=== PATIENT | female | born 1990 | race Hispanic/Latino ===

== ENCOUNTER 2016-09-14 10:10 | Emergency (ER) | payer MEDICARE, MEDICAID ==
[2016-09-14 10:27] VITALS: RESP 16; TEMP 97.8; O2SAT 100; BMI 37.4
--- NOTE | 2016-09-14 10:33 | ED PDOC ---
Arrival/HPI - General Historian: Patient - General Chief Complaint: Cough, Cold, Congestion Time Seen by Provider: 09/14/16 10:11 - History of Present Illness Narrative History of Present Illness (Text): 09/14/16 10:29 26 y/o female, no pmh, nkda, c/o coughing/cold x 2 days with no recent traveling for the past 2 months. Pt. has nasal congestion, productive coughing for the past 2 days, woke up this morning and take the coughing medication on empty stomach, has epigastric pain now, no dizziness, no night sweat, no fever or chills, no numbness or tingling, no palpitation, no other medical or psychological complaints. (Peyman Castellano) Past Medical History - Provider Review Nursing Documentation Reviewed: Yes - Cardiac Hx Cardiac Disorders: No - Pulmonary Hx Respiratory Disorders: No - Neurological Hx Neurological Disorder: No - HEENT Hx HEENT Disorder: No - Renal Hx Renal Disorder: No - Endocrine/Metabolic Hx Endocrine Disorders: No - Hematological/Oncological Hx Blood Disorders: Yes Other/Comment: DVT left leg - Integumentary Hx Dermatological Disorder: No - Musculoskeletal/Rheumatological Hx Musculoskeletal Disorders: Yes Hx Back Pain: Yes - Gastrointestinal Hx Gastrointestinal Disorders: No - Genitourinary/Gynecological Hx Genitourinary Disorders: No - Psychiatric Hx Psychophysiologic Disorder: No Hx Substance Use: No - Surgical History Other/Comment: gastric sleeve Family/Social History - Physician Review Nursing Documentation Reviewed: Yes Family/Social History: Unknown Family HX Smoking Status: Never Smoked Hx Alcohol Use: No Hx Substance Use: No Allergies/Home Meds Allergies/Adverse Reactions: Allergies No Known Allergies Allergy (Verified 09/14/16 10:26) Home Medications: Home Meds Medication Instructions Recorded Confirmed Cyclobenzaprine [Flexeril] 10 mg PO PRN PRN 09/14/16 09/14/16 Review of Systems - Review of Systems Constitutional: absent: Fatigue, Fevers Eyes: absent: Vision Changes ENT: Rhinorrhea, Sinus Congestion. absent: Hearing Changes Respiratory: Cough, Sputum. absent: SOB Cardiovascular: absent: Chest Pain Gastrointestinal: Abdominal Pain. absent: Nausea, Vomiting Skin: absent: Rash, Pruritis Neurological: absent: Headache, Dizziness, Focal Weakness, Gait Changes, Speech Changes, Facial Droop, Disequilibrium, Seizure Physical Exam Vital Signs Reviewed: Yes Temperature: Afebrile Blood Pressure: Normal Pulse: Regular Respiratory Rate: Normal Appearance: Positive for: Well-Appearing, Non-Toxic, Comfortable Pain Distress: Mild Mental Status: Positive for: Alert and Oriented X 3 - Systems Exam Head: Present: Atraumatic, Normocephalic, Other (+ttp on the lt. maxillary sinus region) Pupils: Present: PERRL Extroacular Muscles: Present: EOMI Conjunctiva: Present: Normal Ears: Present: NORMAL TM, Normal Canal. No: Erythema Mouth: Present: Moist Mucous Membranes Pharnyx: No: ERYTHEMA, EXUDATE, TONSILS ENLARGED, Uvular Deviation, Soft Palate/ Uvular Edema Nose (External): Present: Atraumatic. No: Abrasion, Contusion, Laceration Nose (Internal): Present: Normal Inspection, No Active Bleeding, Rhinorrhea. No : Purulent Mucous, Septal Deviation, Septal Hematoma, Epistaxis Neck: Present: Normal Range of Motion, Trachea Midline. No: Meningeal Signs, MIDLINE TENDERNESS, Paraspinal Tenderness, Lymphadenopathy Respiratory/Chest: Present: Clear to Auscultation, Good Air Exchange. No: Respiratory Distress, Accessory Muscle Use, Wheezes, Decreased Breath Sounds, Rales, Retracting, Rhonchi, Tachypneic Cardiovascular: Present: Regular Rate and Rhythm, Normal S1, S2. No: Murmurs Abdomen: Present: Tenderness (mild epigastric tenderness), Normal Bowel Sounds. No: Distention, Peritoneal Signs, Rebound, Guarding Upper Extremity: Present: Normal Inspection. No: Cyanosis, Edema Lower Extremity: Present: Normal Inspection. No: Edema Neurological: Present: GCS=15, Speech Normal, Motor Func Grossly Intact, Gait Normal, Memory Normal Skin: Present: Warm, Dry, Normal Color. No: Rashes Psychiatric: Present: Alert, Oriented x 3, Normal Insight, Normal Concentration Vital Signs Temp Pulse Resp BP Pulse Ox 09/14/16 11:25 80 16 121/82 100 09/14/16 10:24 97.8 F 79 16 120/80 100 Medical Decision Making - RAD Interpretation Operator [employer]: Radiologist ED Course and Treatment: I was available for consultation during PA evaluation. The chart was reviewed by me, and I agree with disposition. The documented history was done by the physician wastewater technician. The documented physical exam was done by the physician wastewater technician. The documented procedures were done by the physician wastewater technician. ( Lyle Alcocer) 09/14/16 10:37 -pepcid -chest xray -rapid flu -observe and reassess 09/14/16 11:15 -Abdominal pain resolved with the pepcid, physical examination is non-tender with no guarding. -Urine hcg negative -Rapid flu negative -Chest x-ray show no active disease -Discharge home with cefdinir, claritin d24, flonase, promethazine dm, take tylenol or motrin as needed, stay hydrated, follow up with your own pmd and ENT within 2 days, return to the ER for any new or worsening signs or symptoms. (Peyman Castellano) - Lab Interpretations Lab Results: Lab Results 09/14/16 10:41: Influenza Typ A,B (EIA) Negative for flu a/b - RAD Interpretation Radiology Orders: 09/14/16 10:33 CHEST TWO VIEWS (PA/LAT) [RAD] Stat no active disease (Peyman Castellano) - Medication Orders Current Medication Orders: Discontinued Medications Famotidine (Pepcid) 20 mg PO STAT STA Stop: 09/14/16 10:34 Last Admin: 09/14/16 10:51 Dose: 20 MG - PA / CYCLE MANAGER / Resident Statement MD/DO has reviewed & agrees with the documentation as recorded. Disposition/Present on Arrival - Present on Arrival Any Indicators Present on Arrival: No History of DVT/PE: No History of Uncontrolled Diabetes: No Urinary Catheter: No History of Decub. Ulcer: No History Surgical Site Infection Following: None - Disposition Have Diagnosis and Disposition been Completed?: Yes Disposition Time: 10:39 Patient Plan: Discharge - Disposition Diagnosis: Sinusitis Disposition: HOME/ ROUTINE Condition: GOOD Additional Instructions: Discharge home with cefdinir, claritin d24, flonase, promethazine dm, take tylenol or motrin as needed, stay hydrated, follow up with your own pmd and ENT within 2 days, return to the ER for any new or worsening signs or symptoms. Prescriptions: Loratadine/Pseudoephedrine [Claritin-D 24 Hour Tablet] 1 each PO DAILY #7 tab.er.24h Fluticasone Propionate [Flonase Allergy Relief] 9.9 ml NS DAILY #1 spray.susp Cefdinir [Omnicef] 300 mg PO BID #20 cap Promethazine DM [Phenergan DM Syrup] 5 ml PO QID PRN #150 ml PRN Reason: Other Referrals: [facility] [place] - Follow up with primary Yamil Alvarado DO [Staff Provider] - Follow up with primary Forms: WORK NOTE
[2016-09-14 11:26] VITALS: BP 121/82; PULSE 80
--- NOTE | 2016-09-14 15:52 | RAD ---
HISTORY: cough COMPARISON: No prior. TECHNIQUE: Chest PA and lateral FINDINGS: LUNGS: No active pulmonary disease. PLEURA: No significant pleural effusion identified. No pneumothorax apparent. CARDIOVASCULAR: Normal. OSSEOUS STRUCTURES: No significant abnormalities. VISUALIZED UPPER ABDOMEN: Normal. OTHER FINDINGS: None. IMPRESSION: No active disease.
== END 2016-09-14 11:25 | disposition home or self-care (01) ==
LOC: ED 10:10
DX: J32.9 Chronic sinusitis, unspecified (principal)

== ENCOUNTER 2017-02-11 09:30 | Emergency (ER) | payer MEDICAID, MEDICARE ==
[2017-02-11 09:30] VITALS: BMI 37.4
[2017-02-11 10:05] VITALS: BP 109/74; PULSE 103; RESP 17; TEMP 98.2; O2SAT 100
--- NOTE | 2017-02-11 10:31 | ED PDOC ---
Arrival/HPI - General Historian: Patient - History of Present Illness Time/Duration: Other (chronic) Symptom Onset: Gradual Symptom Course: Worsening (last 30 days) Context: Home - General Chief Complaint: Back Pain Time Seen by Provider: 02/11/17 10:05 - History of Present Illness Narrative History of Present Illness (Text): 02/11/17 10:25 This 26 yo female with pmh chronic back pain x 5 years, presents to this ED c/o worsening left lower back pain, than radiates to posterior thigh x 1month. Patient stated pain has worsen yesterday, and she saw her orthopedist doctor multiple times within last 3-4 weeks. She had lumbar spine x-rays which shows no Fx. and recently had an MRI of lower back which shows bulging disc. Patient denies sob, cp, abdominal pain, urinary symptoms, GI/ incontinence, saddle anesthesias, urinary retention, or abnormal gait. (Jossue Vieira) Past Medical History - Provider Review Nursing Documentation Reviewed: Yes - Travel History If Yes, travel location?: [place] - Cardiac Hx Cardiac Disorders: Yes - Pulmonary Hx Respiratory Disorders: No - Neurological Hx Neurological Disorder: No - HEENT Hx HEENT Disorder: No - Renal Hx Renal Disorder: No - Endocrine/Metabolic Hx Endocrine Disorders: No - Hematological/Oncological Hx Blood Disorders: Yes Other/Comment: DVT left leg - Integumentary Hx Dermatological Disorder: No - Musculoskeletal/Rheumatological Hx Musculoskeletal Disorders: Yes Hx Back Pain: Yes - Gastrointestinal Hx Gastrointestinal Disorders: No - Genitourinary/Gynecological Hx Genitourinary Disorders: No - Psychiatric Hx Psychophysiologic Disorder: No Hx Substance Use: No - Surgical History Hx Gastric Bypass Surgery: Yes Other/Comment: gastric sleeve Family/Social History - Physician Review Nursing Documentation Reviewed: Yes Family/Social History: Other (non-contributory) Smoking Status: Never Smoked Hx Alcohol Use: No Hx Substance Use: No Allergies/Home Meds Allergies/Adverse Reactions: Allergies No Known Allergies Allergy (Verified 02/11/17 09:45) Home Medications: Home Meds Medication Instructions Recorded Confirmed Dexamethasone [Zonacort] 0 mg PO DAILY 02/11/17 02/11/17 diaZEpam [Valium] 0 mg PO DAILY 02/11/17 02/11/17 Review of Systems - Review of Systems Constitutional: Normal. absent: Fatigue, Weight Change, Fevers, Night Sweats Eyes: Normal ENT: Normal Respiratory: Normal. absent: SOB, Cough Cardiovascular: Normal. absent: Chest Pain, Palpitations Gastrointestinal: Normal. absent: Abdominal Pain, Nausea, Vomiting Genitourinary Female: Normal. absent: Dysuria, Frequency, Hematuria, Vaginal Bleeding, Vaginal Discharge Musculoskeletal: Back Pain Skin: Normal. absent: Rash, Pruritis Neurological: Normal, Other (NO /GI incontinence). absent: Headache, Dizziness, Focal Weakness, Gait Changes, Facial Droop, Disequilibrium, Seizure Endocrine: Normal Hemo/Lymphatic: Normal Psychiatric: Normal Physical Exam Temperature: Afebrile Blood Pressure: Normal Pulse: Regular Respiratory Rate: Normal Appearance: Positive for: Well-Appearing, Non-Toxic, Comfortable Pain Distress: None Mental Status: Positive for: Alert and Oriented X 3 - Systems Exam Head: Present: Atraumatic, Normocephalic Pupils: Present: PERRL Extroacular Muscles: Present: EOMI Conjunctiva: Present: Normal Mouth: Present: Moist Mucous Membranes Neck: Present: Normal Range of Motion Respiratory/Chest: Present: Clear to Auscultation, Good Air Exchange. No: Respiratory Distress, Accessory Muscle Use Cardiovascular: Present: Regular Rate and Rhythm, Normal S1, S2. No: Murmurs Abdomen: Present: Normal Bowel Sounds. No: Tenderness, Distention, Peritoneal Signs Back: Present: Normal Inspection. No: CVA Tenderness, Midline Tenderness, Paraspinal Tenderness, Pain with Leg Raise Upper Extremity: Present: Normal Inspection, Normal ROM, NORMAL PULSES, Neurovascularly Intact, Capillary Refill < 2s. No: Cyanosis, Edema Lower Extremity: Present: Normal Inspection, NORMAL PULSES, Normal ROM, Neurovascularly Intact, Capillary Refill < 2 s. No: Edema Neurological: Present: GCS=15, CN II-XII Intact, Speech Normal, Motor Func Grossly Intact, Normal Sensory Function, Normal Cerebellar Funct, Norm Deep Tendon Reflexes, Gait Normal (with mild discomfort of pain), Memory Normal, Normal 2Pt Descrimination Skin: Present: Warm, Dry, Normal Color. No: Rashes Psychiatric: Present: Alert, Oriented x 3, Normal Insight, Normal Concentration Vital Signs Temp Pulse Resp BP Pulse Ox 02/11/17 09:41 98.2 F 103 H 17 109/74 100 Medical Decision Making Re-evaluation Time: 10:57 Reassessment Condition: Re-examined, Improved ED Course and Treatment: I was available for consultation during PA evaluation. The chart was reviewed by me, and I agree with disposition. The documented history was done by the physician sheriffs officer. The documented physical exam was done by the physician sheriffs officer. The documented procedures were done by the physician sheriffs officer. ( Lyle Alcocer) 02/11/17 10:37 Patient is ambulatory in ED. She was able to walk to her stretcher 02/11/17 10:52 Re-evaluation. Patient feels better. Discussed results and plan with patient who expresses understanding. All questions answered and there is agreement with the plan to discharge home with instructions. Patient stable for discharge. Return if symptoms persist or worsen Patient was recommended to f/u pain management doctor (Jossue Vieira) - Medication Orders Current Medication Orders: Discontinued Medications Ketorolac Tromethamine (Toradol) 30 mg IM STAT STA Stop: 02/11/17 10:39 Disposition/Present on Arrival - Present on Arrival Any Indicators Present on Arrival: No History of DVT/PE: Yes History of Uncontrolled Diabetes: No Urinary Catheter: No History of Decub. Ulcer: No History Surgical Site Infection Following: None - Disposition Have Diagnosis and Disposition been Completed?: Yes Disposition Time: 10:53 Patient Plan: Discharge - Disposition Diagnosis: Chronic back pain Disposition: HOME/ ROUTINE Condition: GOOD Discharge Instructions (ExitCare): Chronic Back Pain (ED) Additional Instructions: Call private doctor for follow up visit in 1-2 days. Take medication as instructed. Return to emergency if symptoms worsen. Call Pain management doctor for further pain control Prescriptions: Naproxen 500 mg PO BID PRN #14 tab PRN Reason: Pain, Severe (8-10) Referrals: Ga Le MD [Primary Care Provider] - Follow up with primary Ga Ding MD [Staff Provider] - Follow up with primary Forms: [employer] ([place]izen [place]), WORK NOTE
== END 2017-02-11 11:08 | disposition home or self-care (01) ==
LOC: ED 09:30
DX: G89.29 Other chronic pain (principal); M54.5 Low back pain
CPT/HCPCS: 96372; 99284; J1885